=== PATIENT | female | born 1985 | race Caucasian/White ===

== ENCOUNTER 2016-11-04 19:15 | Inpatient (IN) | payer OTHER ==
[~2016-11-04] VITALS: Ht 172.7 cm; Wt 94.8 kg
--- NOTE | ~2016-11-04 | FD ---
ADMIT: 11/04/2016 RM/LOC: 226 [facility] MR#: [id number] [address] [address] AMBROCIO HUSTON [address] [place] [id number] Final Diagnosis SEX: F AGE: 31 : 1985 ADMISSION DATE: 11/04/2016 DISCHARGE DATE: 11/06/2016 FINAL DIAGNOSIS: 1. Term intrauterine at 39 weeks 5 days. 2. Active labor. PROCEDURE: Spontaneous vaginal delivery. Wendi Zuñiga MD/ merly JOB #: [id number] CC: Jaqui Tompkins MD, Attending Physician Jaqui Tompkins MD, Family Physician
[2016-11-07] MEDS ORDERED: CALCIUM500 MG PO (16:50)
[2016-11-07] MEDS ORDERED: IRON325 M1 PO (16:50)
[2016-11-07] MEDS ORDERED: JUICE PLUS PO (16:50)
[2016-11-07] MEDS ORDERED: MOTRIN-DPS800 MG PO (16:51)
[2016-11-07] MEDS ORDERED: TYLENOL #3 DPS1 TAB PO (16:51)
[2016-11-07] MEDS ORDERED: COLACE-DPS100 MG PO (16:51)
[2016-11-07] MEDS ORDERED: OMEGA-3 DPS1000 MG PO (16:51)
[2016-11-07] MEDS ORDERED: DERMOPLAST SPRA56 GM TP (16:52)
[2016-11-07] MEDS ORDERED: NIPPLECREAM TP (16:52)
[2016-11-07] MEDS ORDERED: LAN-O-SOOTHE7 GM TP (16:52)
[2016-11-07] MEDS ORDERED: TUCKS1 EACH TP (16:54)
--- NOTE | 2016-11-16 18:53 | HP ---
ADMIT: 11/04/2016 RM/LOC: 226 [facility] MR#: [id number] [address] [address] AMBROCIO HUSTON [address] [place] [id number] History and Physical SEX: F AGE: 31 : 1985 DATE OF SERVICE: HISTORY OF PRESENT ILLNESS: This is a 31-year-old, G4, P 1-1-1-2, with an IUP at 39-4/7th weeks, presents with complaints of contractions for the last 24 hours with increased frequency over the last several hours. No loss of fluid, vaginal bleeding. Good movement. Her has essentially been uncomplicated except with a prior history of delivery at 36 weeks. PAST MEDICAL HISTORY: None. PAST SURGICAL HISTORY: Tonsillectomy in 1999. SOCIAL HISTORY: No tobacco, no alcohol, no drug use. She is . 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 FAMILY HISTORY: Colon cancer in maternal grandmother. Lung cancer in paternal grandmother. Prostate cancer in paternal grandfather. Diabetes mellitus in maternal grandfather. Father has hypertension. OBSTETRICAL AND GYNECOLOGICAL HISTORY: She is a G4, P 1-1-1-2, with first delivered at 39 weeks of baby 7 pounds 4 ounces. Second was a first-trimester loss, her was an at 36-4/7th weeks, 6 pounds 5 ounce baby. OBSTETRICAL LABORATORY DATA: Diabetes screen 63. Hepatitis B surface antigen was negative. RPR was nonreactive. Rubella was immune. She is O positive. Antibody screen was negative. HIV was negative. Gonorrhea and Chlamydia were negative. REVIEW OF SYSTEMS: The patient denies any fevers, chills, chest pain, shortness of breath, nausea, vomiting, diarrhea, or constipation. No vaginal bleeding, loss of fluid. Good movement. PHYSICAL EXAMINATION: VITAL SIGNS: Blood pressure is 105/62, pulse 66, temperature is 97.1, she is 98% on room air. heart tones 125 moderate variability, positive accelerations, no decelerations noted. [place] shows contractions are palpable approximately every 6 to 7 minutes are not tracing while on the monitor. GENERAL: The patient is uncomfortable with contractions and does appear mildly uncomfortable between contractions. HEART: Regular rate and rhythm. No murmurs, rubs, or gallops. LUNGS: Clear to auscultation bilaterally. ABDOMEN: Gravid. Estimated weight of 4000 g. CERVIX: Sterile cervical exam 9, 100% effaced, -2 station, bulging bag. Unable to assess position due to station and amniotic fluid and bag. LABORATORY DATA: White count of 11.0, hemoglobin 12.2, hematocrit 36.8, and platelets are 227. ADMIT: 11/04/2016 RM/LOC: 226 [facility] MR#: [id number] [facility] [address] [address] [place] [address] History and Physical SEX: F AGE: 31 : 1985 ASSESSMENT AND PLAN: This is a 31-year-old, 4, para 1-1-1-2, with an intrauterine at 39-4/7th weeks. 1. We will admit to Labor and Delivery for labor management. Anticipate spontaneous vaginal delivery. She understands the risks, benefits, and alternatives include bleeding, potential need of blood transfusion, infection, injury to surrounding structures, possible need for additional procedures, and potential operative vaginal delivery or potential section. The patient has previously voiced understanding and signed consent. 2. Contractions are spacing out. We will start Pitocin per protocol to help improve application of head to cervix. 3. Group B Streptococcus negative. 4. Rh positive. Rubella immune. Wendi Zuñiga MD/ nicole JOB #: [id number] CC: Jaqui Tompkins, Attending Physician Jaqui Tompkins, Family Physician
--- NOTE | 2016-11-16 18:53 | OR ---
ADMIT: 11/04/2016 RM/LOC: 226 [facility] MR#: [id number] [address] [address] AMBROCIO HUSTON [address] [place] [id number] Operative/Delivery Room Report SEX: F AGE: 31 : 1985 SURGERY DATE: 11/05/2016 SURGEON: Wendi Zuñiga MD PREOPERATIVE DIAGNOSES: 1. Term intrauterine at 39 and 5/7th weeks. 2. Active labor. POSTOPERATIVE DIAGNOSES: 1. Term intrauterine at 39 and 5/7th weeks. 2. Active labor. PROCEDURE: Spontaneous vaginal delivery after. ANESTHESIA: None. FINDINGS: Viable male infant with scores of 8 and 9. Weight is 7 pounds 15 ounces or 3600 g. Intact placenta with 3-vessel cord. Small hemostatic periurethral lacerations that did not require repair. ESTIMATED BLOOD LOSS: 250 mL. INDICATIONS FOR THE PROCEDURE: This is a 31-year-old, G4, P1-1-1-2, who presented to Labor and Delivery in active labor. Her had been uncomplicated. She did require augmentation of labor with Pitocin and AROM with clear fluid. She progressed normally through labor and was found to be complete. PROCEDURE IN DETAIL: Sterile drape was placed on maternal buttocks with expulsive efforts, head was delivered over intact perineum. No nuchal cord was noted. The rest of the then delivered. was placed on mother's chest and delayed cord clamping was employed. After a minute, the cord was clamped and cut. Cord blood was collected. The placenta then delivered spontaneously intact. On examination of the perineum, there just 2 small periurethral lacerations that were hemostatic and were not repaired. The sponge and instrument counts were correct x2. COMPLICATIONS: None. DISPOSITION: The patient is stable in delivery room. Infant to nursery. Wendi Zuñiga MD/ nicole JOB #: [id number] CC: Jaqui Tompkins, Attending Physician ADMIT: 11/04/2016 RM/LOC: 226 [facility] MR#: [id number] [address] [address] [place] [address] Operative/Delivery Room Report SEX: F AGE: 31 : 1985 Jaqui Tompkins, Family Physician
== END 2016-11-06 11:30 | disposition home or self-care (01) | DRG 775 ==
LOC: 2LDRP 19:15 → BC 19:15 → 2LDRP 19:46 → BC 11-07 08:00
PROC: 10E0XZZ Delivery of Products of Conception, External Approach (ICD-10-PCS; principal; 2016-11-05)
PROC: 10907ZC Drainage of Amniotic Fluid, Therapeutic from Products of Conception, Via Natural or Artificial Opening (ICD-10-PCS; principal; 2016-11-05)
DX: O80 Encounter for full-term uncomplicated delivery (principal); Z37.0 Single live birth; Z3A.39 39 weeks gestation of pregnancy